=== PATIENT | male | born 1950 | race Caucasian/White ===

== ENCOUNTER 2023-10-23 06:17 | Outpatient (RCR) | payer MEDICARE, OTHER, SELFPAY | END 2023-10-23 23:59 | disposition home or self-care (01) | LOC: RPT 06:17 | PROVIDERS: ATTENDING PHYSICIAN Orthopaedic Surgery Adult Reconstructive Orthopaedic Surgery; FAMILY PHYSICIAN Family Medicine | DX: Z47.1 Aftercare following joint replacement surgery (principal); Z96.651 Presence of right artificial knee joint; Z73.6 Limitation of activities due to disability | CPT/HCPCS: 97010; 97110; 97140; 97161; 97530 ==

== ENCOUNTER 2023-11-12 06:33 | Outpatient (RCR) | payer MEDICARE, OTHER, SELFPAY | END 2023-11-12 23:59 | disposition home or self-care (01) | LOC: RPT 06:33 | PROVIDERS: ATTENDING PHYSICIAN Orthopaedic Surgery Adult Reconstructive Orthopaedic Surgery; FAMILY PHYSICIAN Family Medicine | DX: Z47.1 Aftercare following joint replacement surgery (principal); Z73.6 Limitation of activities due to disability | CPT/HCPCS: 97010; 97110; 97112; 97116; 97530 ==

== ENCOUNTER → 2023-12-28 06:20 | Outpatient (REF) | payer MEDICARE, OTHER, SELFPAY ==
[2023-12-28 08:39] LABS: PSA, Total - Diagnostic 4.24 ng/ml (0.0-4.0)
== END ==
LOC: REG 06:20
PROVIDERS: ATTENDING PHYSICIAN Specialist; FAMILY PHYSICIAN Family Medicine
DX: D07.5 Carcinoma in situ of prostate (principal); R97.20 Elevated prostate specific antigen [PSA]
CPT/HCPCS: 36415; 84153

== ENCOUNTER → 2024-02-09 16:10 | Outpatient (REF) | payer MEDICARE, OTHER, SELFPAY | LOC: CLAB 16:10 | PROVIDERS: ATTENDING PHYSICIAN Specialist | DX: R97.20 Elevated prostate specific antigen [PSA] (principal) | CPT/HCPCS: 88305; 88344 ==

== ENCOUNTER 2024-03-31 06:19 | Outpatient (RCR) | payer MEDICARE, OTHER, SELFPAY | END 2024-03-31 23:59 | disposition home or self-care (01) | LOC: RPT 06:19 | PROVIDERS: ATTENDING PHYSICIAN Specialist; FAMILY PHYSICIAN Family Medicine | DX: C61 Malignant neoplasm of prostate (principal); Z73.6 Limitation of activities due to disability; R39.15 Urgency of urination | CPT/HCPCS: 97162; 97530 ==

== ENCOUNTER 2024-04-06 06:19 | Day surgery (SDC) | payer MEDICARE, OTHER, SELFPAY ==
[2024-04-04 09:44] VITALS: BMI 29.2
[2024-04-06] VITALS (12 sets, daily range): BP systolic 30–143; BP diastolic 66–83; BMI 29.2
[2024-04-06] MEDS: NEOMYCIN ENEMA 1 BOTTLE RECTAL (06:48)
[2024-04-06] MEDS: NORMOSOL-R/PLASMALYTE-A 1000 IV ×2 (07:08→17:09)
[2024-04-06] MEDS: TORADOL 15 MG IV ×2 (17:10→23:58)
[2024-04-06] MEDS: COLACE 100 MG PO (17:10)
[2024-04-06] MEDS: POLYSPORIN/DOUBLE ANTIBIOTIC 1 APPLIC TOPICAL (20:26)
[2024-04-06] MEDS: REMERON 15 MG PO (22:25)
[2024-04-07] MEDS: NORMOSOL-R/PLASMALYTE-A 1000 IV (03:52)
[2024-04-07] MEDS: TORADOL 15 MG IV (06:12)
[2024-04-07 06:49] LABS: Hematocrit 36.8 % (39.0-52.0); Hemoglobin 12.3 g/dL (13.0-18.0); Mean Corp Hgb Conc. 33.4 g/dL (33.0-37.0); Mean Corpuscular Hgb 27.8 pg (27.0-31.0); Mean Corpuscular Volume 83.1 fL (80.0-94.0); Mean Platelet Volume 9.3 fL (7.4-10.4); Platelet Count 251 10^3/uL (130-400); Red Blood Cell Count 4.43 10^6/uL (4.70-6.10); Red Cell Dist. Width 14.5 % (11.5-14.5); White Blood Cell Count 11.3 10^3/uL (4.8-10.8)
--- NOTE | 2024-04-07 06:52 | W.PN.URO.CBU ---
Today's Communication / Plan
-
discharge
Assessment / Plan
-
stable
Diagnosis
-
Date of Service: April 07, 2024
-
Patient Diagnosis: prostate cancer s/p RALRP
Post Op Day: 1
Subjective
-
'great'
Objective
-
Vital Signs
Temp Pulse Resp BP Pulse Ox
98.3 F 65 20 133/68 99
04/06/24 22:36 04/06/24 22:36 04/06/24 22:36 04/06/24 22:36 04/07/24 04:48
Intake and Output
04/05/24 04/06/24 04/07/24
06:59 06:59 06:59
Intake Total 350 / 350
Output Total 1745 / 1745
Balance -1395 / -1395
Intake:
Oral fluids 50 / 50
IV fluids (Total) 300 / 300
Normosol 300 / 300
Output:
Drain Output (Total) 120 / 120
Left Abdomen Doug-Chin 120 / 120
Urine, Murray 775 / 775
Urine, Voided 850 / 850
Laboratory Results
04/07/24 06:14
Physical Exam
-
General - well developed, well nourished, no acute distress
Chest - clear bilaterally
Genitalia - Murray with donny urine
Skin - warm & dry with no rash
Neuro - AOx3, no motor deficits
Extremities - no clubbing, no cyanosis, no edema
KATIANA - removed
Dressings - , intact
[2024-04-07 07:05] VITALS: BP 142/72
[2024-04-07 07:07] LABS: Blood Urea Nitrogen 19 mg/dl (9-20); Calcium 8.5 mg/dl (8.4-10.2); Carbon Dioxide 31 mmol/L (22-30); Chloride 100 mmol/L (98-107); Estimated Creatinine Clearance 92 ml/min; Glucose 96 mg/dl (70-99); Potassium 4.3 mmol/L (3.5-5.1); Sodium 138 mmol/L (135-145); eGFR > 60.00
[2024-04-07] MEDS: LIPITOR 10 MG PO (07:37)
[2024-04-07] MEDS: WELLBUTRIN XL (24 hour extended release) 300 MG PO (07:37)
[2024-04-07] MEDS: DIOVAN 160 MG PO (07:37)
[2024-04-07] MEDS: EFFEXOR XR 150 MG PO (07:37)
[2024-04-07] MEDS: COLACE 100 MG PO ×2 (07:37→11:08)
[2024-04-07] MEDS: ORETIC 25 MG PO (07:37)
[2024-04-07] MEDS: POLYSPORIN/DOUBLE ANTIBIOTIC 1 APPLIC TOPICAL (07:38)
--- NOTE | 2024-04-07 11:00 | VNURNOTE ---
Home Health Liaison met with patient at bedside to discuss [facility] nurse/therapy, visits, schedule and homebound status. Patient is agreeable and understands that visits at home will be 2-3 x per week to assess and teach medical and medina management.
[facility] brochure provided with contact information. Patient is aware that [facility] will contact them for start of care in 1-2 days after discharge from .
[facility] referral completed in [facility].
[2024-04-07] MEDS: TORADOL IV (11:08)
--- NOTE | 2024-04-07 11:59 | CM ---
Reviewed chart, received consult for VN and patent selected . Referral made to [facility]. Patient was provided with [facility] letter and it was reviewed, and signed and now on chart. Patient stated that he lives in a single, two story home with two
steps to enter with his . He described himself as independent with his ADLs, personal care, dressing and bathing. he ambulates independently without device. He is able to cook, clean, do boardmarker and laundry. He drives and can get to her
appointments and do all of his own shopping.
He denied any DME in his home.
He has never had VN services prior to this admission.
He has never been to a SNF.
Patient has a prescription plan and uses, [facility] in [place] for all of his medications.
Patient's PCP is, Dr. Jadiel Johnson.
Patient stated that he feels he is functioning at his baseline and feels good about returning home and had no further concerns.
Plan: Case management will continue to follow and assist with discharge planning. Patient will return home with VN.
[2024-04-07 12:38] VITALS: BP 154/71
== END 2024-04-07 13:37 | disposition home or self-care (01) ==
LOC: SDS 06:19
PROVIDERS: ATTENDING PHYSICIAN Specialist
DX: C61 Malignant neoplasm of prostate (principal); N40.1 Benign prostatic hyperplasia with lower urinary tract symptoms; N52.01 Erectile dysfunction due to arterial insufficiency
CPT/HCPCS: 55866; 38571; 88305; 88307; 88309; 88332; 80048; 85027; 88331; C1729

== ENCOUNTER 2024-04-28 07:59 | Outpatient (RCR) | payer MEDICARE, OTHER, SELFPAY | END 2024-04-28 23:59 | disposition home or self-care (01) | LOC: RPT 07:59 | PROVIDERS: ATTENDING PHYSICIAN Specialist; FAMILY PHYSICIAN Family Medicine | DX: C61 Malignant neoplasm of prostate (principal); Z73.6 Limitation of activities due to disability | CPT/HCPCS: 97110; 97112; 97164; 97530 ==

== ENCOUNTER → 2024-06-22 06:28 | Outpatient (REF) | payer MEDICARE, OTHER, SELFPAY ==
[2024-06-22 12:44] LABS: PSA, Total - Diagnostic < 0.06 ng/ml (0.0-4.0)
== END ==
LOC: REG 06:28
PROVIDERS: ATTENDING PHYSICIAN Specialist; FAMILY PHYSICIAN Family Medicine
DX: C61 Malignant neoplasm of prostate (principal)
CPT/HCPCS: 84153

== ENCOUNTER 2024-07-21 06:34 | Outpatient (RCR) | payer MEDICARE, OTHER, SELFPAY | END 2024-07-21 23:59 | disposition home or self-care (01) | LOC: RPT 06:34 | PROVIDERS: ATTENDING PHYSICIAN Specialist; FAMILY PHYSICIAN Family Medicine | DX: C61 Malignant neoplasm of prostate (principal); Z73.6 Limitation of activities due to disability | CPT/HCPCS: 97112; 97140; 97530 ==

== ENCOUNTER 2024-07-28 06:25 | Outpatient (RCR) | payer MEDICARE, OTHER, SELFPAY | END 2024-07-28 23:59 | disposition home or self-care (01) | LOC: RPT 06:25 | PROVIDERS: ATTENDING PHYSICIAN Specialist; FAMILY PHYSICIAN Family Medicine | DX: C61 Malignant neoplasm of prostate (principal); Z73.6 Limitation of activities due to disability | CPT/HCPCS: 97112; 97530 ==

== ENCOUNTER → 2024-11-04 06:24 | Outpatient (REF) | payer MEDICARE, OTHER, SELFPAY ==
[2024-11-04 08:57] LABS: PSA, Total - Diagnostic < 0.06 ng/ml (0.0-4.0)
== END ==
LOC: REG 06:24
PROVIDERS: ATTENDING PHYSICIAN Specialist; FAMILY PHYSICIAN Family Medicine
DX: C61 Malignant neoplasm of prostate (principal)
CPT/HCPCS: 36415; 84153

== ENCOUNTER 2024-11-15 06:22 | Outpatient (RCR) | payer MEDICARE, OTHER, SELFPAY | END 2024-11-15 23:59 | disposition home or self-care (01) | LOC: RPT 06:22 | PROVIDERS: ATTENDING PHYSICIAN Specialist; FAMILY PHYSICIAN Family Medicine | DX: C61 Malignant neoplasm of prostate (principal); Z73.6 Limitation of activities due to disability | CPT/HCPCS: 97112; 97530 ==

== ENCOUNTER → 2024-11-19 07:09 | Outpatient (REF) | payer MEDICARE, OTHER, SELFPAY ==
[2024-11-19 08:55] LABS: ALT (SGPT) 47 U/L (0-50); AST (SGOT) 35 U/L (17-59); Albumin 4.5 g/dl (3.5-5.0); Alkaline Phosphatase 79 U/L (38-126); Blood Urea Nitrogen 22 mg/dl (9-20); Calcium 10.1 mg/dl (8.4-10.2); Carbon Dioxide 30 mmol/L (22-30); Chloride 102 mmol/L (98-107); Glucose 111 mg/dl (70-99); Potassium 4.7 mmol/L (3.5-5.1); Sodium 141 mmol/L (135-145); Total Bilirubin 0.6 mg/dl (0.2-1.3); Total Protein 6.8 g/dl (6.3-8.2); eGFR > 60.00
[2024-11-19 09:08] LABS: Free T4 0.72 ng/dl (0.78-2.19)
[2024-11-19 09:22] LABS: TSH 1.42 uIU/ml (0.47-4.68)
== END ==
LOC: RAD 07:09
PROVIDERS: ATTENDING PHYSICIAN Family Medicine
DX: I10 Essential (primary) hypertension (principal); H53.2 Diplopia; H50.00 Unspecified esotropia; H50.22 Vertical strabismus, left eye
CPT/HCPCS: 36415; 70450; 80053; 84439; 84443; 86255

== ENCOUNTER 2024-12-06 08:11 | Outpatient (RCR) | payer MEDICARE, OTHER, SELFPAY | END 2024-12-06 23:59 | disposition home or self-care (01) | LOC: RPT 08:11 | PROVIDERS: ATTENDING PHYSICIAN Specialist; FAMILY PHYSICIAN Family Medicine | DX: C61 Malignant neoplasm of prostate (principal); Z73.6 Limitation of activities due to disability | CPT/HCPCS: 97110; 97112; 97530 ==

== ENCOUNTER → 2025-01-23 06:33 | Outpatient (REF) | payer MEDICARE, OTHER, SELFPAY ==
[2025-01-23 08:16] LABS: PSA, Total - Diagnostic < 0.06 ng/ml (0.0-4.0)
== END ==
LOC: REG 06:33
PROVIDERS: ATTENDING PHYSICIAN Specialist; FAMILY PHYSICIAN Family Medicine
DX: C61 Malignant neoplasm of prostate (principal)
CPT/HCPCS: 36415; 84153

== ENCOUNTER → 2025-04-26 06:44 | Outpatient (REF) | payer MEDICARE, OTHER, SELFPAY ==
[2025-04-26 09:23] LABS: PSA, Total - Diagnostic < 0.06 ng/ml (0.0-4.0)
== END ==
LOC: REG 06:44
PROVIDERS: ATTENDING PHYSICIAN Specialist; FAMILY PHYSICIAN Family Medicine
DX: C61 Malignant neoplasm of prostate (principal)
CPT/HCPCS: 36415; 84153